=== PATIENT | male | born 1975 | race Caucasian/White ===

== ENCOUNTER 2016-09-21 15:28 | Emergency (ER) | payer SELFPAY ==
[~2016-09-21] VITALS: Ht 185.4 cm; Wt 76.0 kg
[~2016-09-21 15:28] MED LIST: PENI500T PO; TRAM50 PO; Z.0.NO CURRENT MEDS
[2016-09-21 15:29] VITALS: BP 128/81; PULSE 89; RESP 16; TEMP 98.3; O2SAT 95
--- NOTE | 2016-09-21 15:37 | PD ---
Physical Exam Date Seen by Provider: September 21, 2016 Time Seen by Provider: 15:35 Narrative 41 year old male presents to the emergency department for evaluation of left facial pain for a few weeks. He thought it was originally a toothache. He is using Orajel and Ibuprofen without relief. Vital signs reviewed. Patient awaiting bed placement. Data Data Last Documented VS Vital Signs Date Time Temp Pulse Resp B/P Pulse Ox O2 Delivery O2 Flow Rate FiO2 09/21/16 15:29 98.3 89 16 128/81 95 MDM Supervised Visit with HAREVY: Negrita Roque September 21, 2016 15:37
[2016-09-21] MEDS ORDERED: IBUP800T23 PO (15:40)
[2016-09-21] MEDS ORDERED: AMOX500C PO (15:40)
[2016-09-21] MEDS ORDERED: PERI0.126 SWISH-SPIT (15:40)
--- NOTE | 2016-09-21 15:47 | PD ---
HPI Chief Complaint: Facial Pain or Swelling Time Seen by Provider: 15:39 Travel History International Travel<30 days: No Contact w/Intl Traveler<30days: No Traveled to known affect area: No History of Present Illness HPI 41-year-old male presents emergency Department with complaint of left maxillary facial pain that has been on and off for the last 2-3 weeks with worsening over the past 2 days. Cannot explain the pain exactly. Says it radiates to his left ear and up to his left forehead area. Denies change in vision. Denies tooth pain. Says it does feel like a toothache but cannot exactly explain it. Reports as a stabbing sensation. Has been taking ibuprofen and using Orajel with no relief of symptoms. Denies fever, vomiting. Denies facial erythema or edema. Has no other medical complaints. No known allergies. No other modifying factors or associated signs and symptoms. PFSH Past Medical History Kidney Stones: Yes Social History Alcohol Use: No Tobacco Use: Yes (states 2 cigars per day) Substance Use: No Allergies-Medications (Allergen,Severity, Reaction): Coded Allergies: No Known Allergies (Verified , 09/21/16) Reported Meds & Prescriptions Reported Meds & Active Scripts Active Peridex Liq (Chlorhexidine Gluconate (Mouth) Liq) 0.12% Soln 15 Ml SWISH-SPIT BID 10 Days Ibuprofen 800 Mg Tab 800 Mg PO Q6HR PRN Amoxicillin 500 Mg Cap 500 Mg PO BID 10 Days Ultram (Tramadol HCl) 50 Mg Tab 50 Mg PO Q4HPRN FOR PAIN Pen Vk (Penicillin V Potassium) 500 Mg Tab 500 Mg PO QID 7 Days Reported No Current Meds (Miscellaneous Medication) [facility] [place] of Systems Except as stated in HPI: all other systems reviewed are Neg Physical Exam Narrative GENERAL: Well-nourished, well-developed male patient, in no acute distress; afebrile, nontoxic-appearing SKIN: Warm and dry. HEAD: Atraumatic. Normocephalic. No facial edema, erythema, tenderness on palpation. No lymphadenopathy. No tenderness on palpation to the maxillary sinus area. EYES: Pupils equal and round. No scleral icterus. No injection or drainage. Pupils equal and reactive at 3 mm. PERRLA. ENT: Mucosa pink and moist. No erythema or exudates. No uvular edema. No uvular , palatal, or tonsillar deviation. Airway patent. EARS: Bilateral pinnae and external canals appear within normal limits. Bilateral tympanic membranes without erythema, dullness or perforation. MOUTH: Mucous membranes moist, no lesions, tongue and gums appear normal. No tenderness on palpation elicited to left upper teeth. Gingiva is without erythema, edema, drainage. No obvious abscesses noted. Left upper tooth #19 does have large dental cavity and decay. NECK: Trachea midline. No lymphadenopathy. CARDIOVASCULAR: Regular rate. RESPIRATORY: No accessory muscle use. GASTROINTESTINAL: Flat. MUSCULOSKELETAL: No obvious deformities. No clubbing. No cyanosis. No edema. NEUROLOGICAL: Awake and alert. Oriented 3. No obvious cranial nerve deficits. Motor grossly within normal limits. Normal speech. PSYCHIATRIC: Appropriate mood and affect; insight and judgment normal. Data Data Last Documented VS Vital Signs Date Time Temp Pulse Resp B/P Pulse Ox O2 Delivery O2 Flow Rate FiO2 09/21/16 15:29 98.3 89 16 128/81 95 MDM Medical Decision Making Medical Screen Exam Complete: Yes Emergency Medical Condition: Yes Medical Record Reviewed: Yes Differential Diagnosis Nonspecific facial pain, dentalgia, infected dental caries, dental abscess, sinusitis Narrative Course 41-year-old male physical exam and history of present illness consistent with nonspecific left-sided facial pain. No facial erythema, edema. No dental tenderness on palpation of the upper left dentition. No signs of left ear infection. I will prescribe the patient amoxicillin for possible dental abscess or sinusitis. Instructed patient to follow up with dentist and ENT as needed. Amoxicillin, ibuprofen, Peridex mouth rinse prescribed for home. Patient verbalizes understanding and agreement with treatment plan. Patient is medically cleared and stable for discharge. Discussed reasons to return to the emergency department. Instructed patient to follow up with primary care provider. Patient agrees with treatment plan. The patients vital signs are stable and the patient is stable for outpatient follow-up and treatment. Patient discharged home, stable and in no acute distress. Diagnosis Primary Impression: Left-sided face pain Referrals: Dentist Primary Care Physician Patient Instructions: Dental Abscess (ED), Dental Caries (ED), General Instructions, Toothache (ED) Departure Forms: Tests/Procedures, Work Release Enter return to work date: September 22, 2016 Additional Instructions: Complete full course of antibiotics Ibuprofen as directed and as needed to reduce pain and inflammation Use Peridex as directed for oral hygiene Warm compresses to the affected area Follow-up with dentist Follow-up with primary care provider Return to emergency department immediately with worsening of symptoms Med/Other Pt SpecificInfo: Prescription(s) given Scripts Chlorhexidine Gluconate (Mouth) Liq (Peridex Liq)0.12% Soln15 Ml SWISH-SPIT BID 10 Days Ref 0 Prov:Elisha Barrow 09/21/16 Ibuprofen 800 Mg [id number] Mg PO Q6HR PRN (PAIN) #30 TAB Ref 0 Prov:Elisha Barrow 09/21/16 Amoxicillin 500 Mg Uov145 Mg PO BID 10 Days Ref 0 Prov:Elisha Barrow 09/21/16 Disposition: 01 DISCHARGE HOME Condition: Stable Elisha Barrow September 21, 2016 15:47
== END 2016-09-21 16:01 | disposition home or self-care (01) ==
LOC: NEPK 15:28
DX: R51 Headache (principal); F17.290 Nicotine dependence, other tobacco product, uncomplicated
CPT/HCPCS: 99283